=== PATIENT | female | born 1965 | race Caucasian/White ===

== ENCOUNTER 2017-02-13 11:47 | Emergency (ER) | payer BC, OTHER ==
[~2017-02-13] VITALS: Ht 160 cm; Wt 68.0 kg
[2017-02-13] MEDS ORDERED: LIDOCAINE 1% INJ 50 ML (XYLOCAINE) VIAL ONE (12:40)
--- NOTE | 2017-02-13 12:42 | ED General ---
General Chief Complaint: Laceration Stated Complaint: L TOP OF WRIST LAC Nursing Triage Note: c/o laceration top of left hand. Lac measure 4 cm. Pt cut hand on the metal edge of a door. Nursing Sepsis Screen: No Definite Risk Source of Information: Patient Exam Limitations: No Limitations History of Present Illness Time Seen by Provider: 12:28 Initial Comments 51-year-old female patient presents to the emergency department with complaint of laceration to the left wrist/hand. Reports cutting the hand on the edge of a metal door. Timing/Duration: 1/2 Hour Severity: Moderate Allergies and Home Medications Allergies Coded Allergies: No Known Drug Allergies (Unverified , 02/13/17) Constitutional: no symptoms reported Musculoskeletal: No joint pain, No joint swelling Skin: see HPI Psychiatric/Neurological: Denies Numbness, Denies Paresthesia, Denies Tingling , Denies Weakness All Other Systems Reviewed Negative Unless Noted: Yes (Negative excepted noted.) Past Jtlnvzg-Erbwpy-Clqbdv Hx Patient Social History Recent Foreign Travel: No Contact w/Someone Who Travel: No Recent Infectious Disease Expo: No Immunizations Up To Date Tetanus Booster (TDap): Unknown Respiratory History of Respiratory Disorde: No Cardiovascular History of Cardiac Disorders: No Neurological History of Neurological Disord: No Musculoskeletal History of Musculoskeletal Dis: No Reviewed Nursing Assessment Reviewed/Agree w Nursing PMH: Yes Family Medical History Significant Family History: No Pertinent Family Hx Physical Exam Vital Signs Vital Sign - Last 12Hours 02/13/17 02/13/17 12:17 13:21 Temp 98.1 Pulse 90 Resp 16 B/P (MAP) 121/89 (100) Pulse Ox 99 O2 Delivery Room Air Capillary Refill : Less Than 3 Seconds General Appearance: No Apparent Distress, WD/WN Cardiovascular: Normal Peripheral Pulses Extremity: Normal Capillary Refill, Normal Range of Motion, Non Tender, Other ( 4 cm laceration left posterior wrist involving skin) Neurologic/Psychiatric: Alert, Oriented x3, No Motor/Sensory Deficits, Normal Mood/Affect Skin: Normal Color, Warm/Dry, Other (4 cm laceration left posterior wrist involving skin) Laceration Repair : Wound Location: Upper Extremities (left posterior wrist) Wound Length (cm): 4 Wound's Depth, Shape: superficial, linear Wound Explored: clean Betadine Prep?: Yes (and scrubbed with chlorhexidine and sterile saline.) Anesthesia: 1% Lidocaine Volume Anesthetic (ccs): 3 Suture: Vicryl Suture Size: 3-0 Other Closure Supply: Wound Adhesive Layer Closure?: 2 Number Deep Layer Sutures: 4 Sterile Dressing Applied?: No Progress Blood loss minimal. Patient tolerated the procedure well. Progress/Results/Core Measures Suspected Sepsis Recent Fever Within 48 Hours: No Infection Criteria Present: None New/Unexplained Altered Menta: No Sepsis Screen: No Definite Risk Sepsis Diagnosis: SIRS Temperature:98.1 Pulse: 90 Respiratory Rate: 16 Blood Pressure 121 /89 Mean: 100 Results/Orders My Orders Orders - GRANT CARNEY Lidocaine 1% (Xylocaine 1%) (02/13/17 12:40) Dipht,Pertuss(Acell),Tet Adult (Boostrix (02/13/17 12:43) Lidocaine 1% Injection (Xylocaine 1% Inj (02/13/17 12:43) Medications Given in ED Current Medications Medications Dose Ordered Sig/Rai Route Start Time Stop Time Status Last Admin Dose Admin Lidocaine HCl 50 ml STK-MED ONCE .ROUTE 02/13/17 12:40 02/13/17 12:42 DC 02/13/17 13:00 50 ML Vital Signs/I&O Vital Sign - Last 12Hours 02/13/17 02/13/17 02/13/17 12:17 13:00 13:21 Temp 98.1 98.1 98.1 Pulse 90 82 Resp 16 16 B/P (MAP) 121/89 (100) Pulse Ox 99 O2 Delivery Room Air Room Air Capillary Refill : Less Than 3 Seconds Blood Pressure Mean: 100 Departure Communication (Admissions) Progress Notes Patient seen, evaluated, and wound repair performed. Plan for discharge to home. Impression Impression: Primary Impression: Laceration of wrist, left Qualified Codes: S61.512A - Laceration without foreign body of left wrist, initial encounter Disposition: 01 HOME, SELF-CARE Condition: Improved Departure-Patient Inst. Decision time for Depature: 12:41 Referrals: NO,LOCAL PHYSICIAN (PCP/Family) Primary Care Physician Patient Instructions: Laceration Repair With Glue (DC) Add. Discharge Instructions: All discharge instructions reviewed with patient and/or family. Voiced understanding. Tylenol extra strength [id number] as directed for pain. Ibuprofen 800 mg by mouth every 8 hours as needed for pain. Ice pack for 20 minute intervals as needed. Tomorrow morning you may begin showering with antibacterial soap. Avoid scrubbing the glue. Follow-up with your family practitioner if needed. Return to the emergency department for worsened pain, redness, fever, drainage, or any other concerns. Work/School Note: Local [employer]ing GRANT CARNEY Feb 13, 2017 12:42
[2017-02-13] MEDS ORDERED: TETANUS,DIPTH,PERTUSS P/F (BOOSTRIX) 0.5 ML VIAL IM STA (12:43)
[2017-02-13] MEDS ORDERED: LIDOCAINE 1% INJ 20 ML (XYLOCAINE) VIAL INJ STA (12:43)
[2017-02-13 13:21] VITALS: BP 118/80
== END 2017-02-13 13:21 | disposition home or self-care (01) ==
LOC: ER 11:50
DX: S61.512A Laceration without foreign body of left wrist, initial encounter (principal); Z23 Encounter for immunization; W26.8XXA Contact with other sharp object(s), not elsewhere classified, initial encounter
CPT/HCPCS: 12002; 90715